=== PATIENT | female | born 1995 | race American Indian/Alaskan Native ===

== ENCOUNTER 2021-05-20 11:07 | Emergency (ER) | payer OTHER ==
[2021-05-20 11:42] VITALS: BP 117/67
--- NOTE | 2021-05-20 13:13 | Event Note ---
ED Screening Note ED Screening Note: Patient presents for nausea, vomiting, diarrhea that began 5 days ago She states that she is having difficulty tolerating p.o. intake Patient currently has a bag of chips She states that she has been having lower abdominal cramping She states that she went to the [facility] and had a positive blood test She has not yet had an ultrasound She states that she has an appointment next week She denies any vaginal bleeding /P: 1/A: 0 Last menstrual cycle 03/28/2021 This initial assessment/diagnostic orders/clinical plan/treatment(s) is/are subject to change based on patients health status, clinical progression and re- assessment by fellow clinical providers in the ED. Further treatment and workup at subsequent clinical providers discretion. Patient/guardian urged not to elope from the ED as their condition may be serious if not clinically assessed and managed. Initial orders include: labs, urine
[2021-05-20] MEDS ORDERED: LACTATED RINGERS 1,000 ML IV ONE (13:56)
[2021-05-20] MEDS ORDERED: ACETAMINOPHEN 325 MG TAB PO ONE (13:56)
[2021-05-20] MEDS ORDERED: ONDANSETRON 4 MG/2 ML INJ IV ONE (13:56)
--- NOTE | 2021-05-20 13:56 | Emergency Department Report ---
ED HPI - General Chief complaint: Abdominal Pain Stated complaint: ABD PAIN/CRAMPS Time Seen by Provider: 05/20/21 13:07 Source: patient Mode of arrival: Ambulatory Limitations: No Limitations - History of Present Illness Initial comments: 25-year-old female who reports that she is about 8 weeks based on her last menstrual cycle which was March 25, 2021 presents to the ER today with complaints of nausea, vomiting and abdominal cramps. Patient states that for the past 2 weeks she has been having constant nausea and vomiting to the point where she is unable to keep anything down. She reports pain and cramping to her lower abdomen which started about 1 week ago. She also reports pinkish discharge mainly when she wipes after urinating. She states that she has been having alternating watery and loose stools but no hematochezia, mucus or melena. She also denies any hematemesis. patient states that she has an appointment for her first care visit with the [facility] next week. She she is G2, P1 Ab0. Blood type is B+. MD Complaint: abdominal pain, other (Nausea vomiting) -: week(s) - Related Data Previous Rx's Medication Instructions Recorded Last Taken Type Ondansetron [Zofran Odt] 4 mg PO Q8HR PRN #20 tab.rapdis 05/20/21 Unknown Rx Allergies Allergy/AdvReac Type Severity Reaction Status Date / Time peanut AdvReac Unknown Verified 05/20/21 11:28 ED Review of Systems ROS: Stated complaint: ABD PAIN/CRAMPS Other details as noted in HPI Comment: All other systems reviewed and negative Constitutional: denies: chills, fever Eyes: denies: eye pain, eye discharge, vision change ENT: denies: ear pain, throat pain Respiratory: denies: cough, shortness of breath, SOB with exertion, SOB at rest, wheezing Cardiovascular: denies: chest pain, palpitations, dyspnea on exertion, edema, syncope, paroxysmal nocturnal dyspnea Gastrointestinal: abdominal pain, nausea, vomiting, diarrhea. denies: constipation, hematemesis, hematochezia Genitourinary: denies: urgency, dysuria, frequency, hematuria, discharge, abnormal menses, dyspareunia Musculoskeletal: denies: back pain, joint swelling, arthralgia Skin: denies: rash, lesions, change in color, change in hair/nails, pruritus Neurological: denies: headache, weakness, numbness, paresthesias, confusion, abnormal gait, vertigo Psychiatric: as per HPI. denies: auditory hallucinations, visual nayeli lucinations, homicidal thoughts, suicidal thoughts Hematological/Lymphatic: denies: easy bleeding, easy bruising, swollen glands ED Past Medical Hx - Past Medical History Previous Medical History?: No - Surgical History Past Surgical History?: No - Medications Home Medications: Home Medications Medication Instructions Recorded Confirmed Last Taken Type Ondansetron [Zofran Odt] 4 mg PO Q8HR PRN #20 tab.rapdis 05/20/21 Unknown Rx ED Physical Exam - General Limitations: No Limitations General appearance: alert, in no apparent distress - Head Head exam: Present: atraumatic, normocephalic, normal inspection - Eye Eye exam: Present: normal appearance, PERRL, EOMI Pupils: Present: normal accommodation - ENT ENT exam: Present: normal exam, mucous membranes moist - Neck Neck exam: Present: normal inspection, full ROM - Respiratory Respiratory exam: Present: normal lung sounds bilaterally. Absent: respiratory distress, wheezes, rales, rhonchi, stridor - Cardiovascular Cardiovascular Exam: Present: regular rate, normal rhythm, normal heart sounds - GI/Abdominal GI/Abdominal exam: Present: soft, tenderness (LLQ). Absent: distended, guarding, rebound - Neurological Exam Neurological exam: Present: alert, oriented X3, CN II-XII intact, normal gait - Psychiatric Psychiatric exam: Present: normal affect, normal mood - Skin Skin exam: Present: intact ED Course Vital Signs 05/20/21 11:29 Temperature 98.3 F Pulse Rate 57 L Respiratory 16 Rate Blood Pressure 117/67 O2 Sat by Pulse 100 Oximetry ED Medical Decision Making - Lab Data Result diagrams: 05/20/21 13:28 05/20/21 13:28 - Radiology Data Radiology results: report reviewed Patient: RADHA LOPEZ MR# : [id number] : 1995 Acct:[id number] Age/Sex: 25 / F ADM Date: 05/20/21 Loc: ED Attending Dr: Ordering Physician: RUSSELL GREGORIO Date of Service: 05/20/21 Procedure(s): US OB transvaginal Accession Number(s): [id number] cc: RUSSELL GREGORIO ULTRASOUND OBSTETRIC REASON FOR EXAM: Abd pain//Quant [id number] TECHNIQUE: Transvaginal ultrasound was performed to evaluate a first trimester . COMPARISON: None available. FINDINGS: FINDINGS: The pole, yolk sac, and gestational sac are normal in appearance. [place]-rump length: 15 mm. This corresponds with a gestational age of 7 weeks 5 days. heart rate: 145 bpm Perigestational hemorrhage: There is perigestational hemorrhage involving less than half the circumference of the gestational sac. This measures 1.3 x 2.0 x 0.6 cm. MATERNAL FINDINGS: The uterus demonstrates an otherwise unremarkable sonographic appearance. The right ovary demonstrates a normal sonographic appearance. The left ovary demonstrates a normal sonographic appearance. Cul-de-sac: There is no free fluid. IMPRESSION: Viable intrauterine . Gestational age is 7 weeks 5 days by ultrasound, consistent with the patient's LMP. Recommend clinical screening and ultrasound follow-up in the second trimester to screen for anomalies. Small to moderate perigestational hemorrhage does not involve greater than 50% of the sac circumference, though may account for vaginal bleeding. Continued attention on follow-up is recommended. Signer Name: Emilio Cotton MD Signed: 05/20/2021 5:17 PM Workstation Name: [id number] Transcribed By: JS Dictated By: EMILIO COTTON MD Electronically Authenticated By: EMILIO COTTON MD Signed Date/Time: 05/20/211716 DD/ 14 TD/TT: - Medical Decision Making Reports feeling better after IV fluids, Zofran and Tylenol. She actually states that she now feels hungry. She was able to tolerate p.o. fluids without any vomiting during stay. She is currently not toxic, not ill-appearing and not in any acute distress. Her vital signs are stable. All labs reviewed and unremarkable. Patient is Rh B+ and therefore no indication for RhoGam. Ultrasound showsViable intrauterine . Gestational age is 7 weeks 5 days by ultrasound, consistent with the patient's LMP. Recommend clinical screening and ultrasound follow-up in the second trimester to screen for anomalies. Small to moderate perigestational hemorrhage does not involve greater than 50% of the sac circumference, though may account for vaginal bleeding. Continued attention on follow-up is recommended. All labs including ultrasound results discussed with patient. Recommend that she keep her appointment with her [facility]. Recommend avoiding any sexual activity or strenuous activity until follow-up with OB. Patient will be given prescription for Zofran and informed her she can take Tylenol as needed for pain. At this time there is no indication for any additional testing, s pecialist consult or admission. Patient expressed understanding of all instructions and agree with plan. Patient was stable at time of discharge. Critical care attestation.: If time is entered above; I have spent that time in minutes in the direct care of this critically ill patient, excluding procedure time. ED Disposition Clinical Impression: Threatened miscarriage, Vomiting Disposition: HOME / SELF CARE / HOMELESS Is pt being admited?: No Does the pt Need Aspirin: No Condition: Stable Instructions: Threatened Miscarriage, Hyperemesis Gravidarum, Abdominal Pain (ED) Additional Instructions: I recommend that you take the Zofran as prescribed. I recommend that you do small frequent meals throughout the day instead of large meals. Recommend a sip on fluids through out the day. Tylenol for pain. Keep your appointment with your [facility] for next week. Return to the ER if your symptoms worsens or changes in any way. Prescriptions: Ondansetron [Zofran Odt] 4 mg PO Q8HR PRN #20 tab.rapdis PRN Reason: nausea/vomiting Referrals: PRIMARY CARE, [Primary Care Provider] - 3-5 Days Forms: Work/School Release Form(ED) Time of Disposition: 17:34
[2021-05-20 14:08] LABS: Basophils % (Auto) 0.3 % (0.0-1.8); Eosinophils # (Auto) 0.2 K/mm3 (0.0-0.4); Eosinophils % (Auto) 2.7 % (0.0-4.3); Hematocrit 36.5 % (30.3-42.9); Hemoglobin 12.4 gm/dl (10.1-14.3); Lymphocytes % (Auto) 26.6 % (13.4-35.0); Mean Corpuscular HGB Conc 34 % (30-34); Mean Corpuscular Volume 91 fl (79-97); Monocytes # (Auto) 0.6 K/mm3 (0.0-0.8); Monocytes % (Auto) 7.7 % (0.0-7.3); Platelet Count 195 K/mm3 (140-440); Red Blood Count 4.03 M/mm3 (3.65-5.03); Red Cell Distribution Width 13.8 % (13.2-15.2)
[2021-05-20 14:33] LABS: Alanine Aminotransferase 13 units/L (7-56); Albumin 4.5 g/dL (3.9-5); Blood Urea Nitrogen 6 mg/dL (7-17); Calcium 9.3 mg/dL (8.4-10.2); Hemolysis Index 3
[2021-05-20 14:38] LABS: BUN/Creatinine Ratio 15
[2021-05-20 15:27] LABS: Bilirubin,Urine NEG (Negative); Blood,Urine NEG (Negative); Color,Urine Straw (Yellow); Protein,Urine <15 mg/dL mg/dL (Negative); Urobilinogen,Urine < 2.0 mg/dL (<2.0)
[2021-05-20 15:34] LABS: HCG Qualitative,Urine Positive (Negative)
--- NOTE | 2021-05-20 17:22 | Ultrasound Report ---
ULTRASOUND OBSTETRIC REASON FOR EXAM: Abd pain//Quant [id number] TECHNIQUE: Transvaginal ultrasound was performed to evaluate a first trimester . COMPARISON: None available. FINDINGS: FINDINGS: The pole, yolk sac, and gestational sac are normal in appearance. [place]-rump length: 15 mm. This corresponds with a gestational age of 7 weeks 5 days. heart rate: 145 bpm Perigestational hemorrhage: There is perigestational hemorrhage involving less than half the circumfe rence of the gestational sac. This measures 1.3 x 2.0 x 0.6 cm. MATERNAL FINDINGS: The uterus demonstrates an otherwise unremarkable sonographic appearance. The right ovary demonstrates a normal sonographic appearance. The left ovary demonstrates a normal sonographic appearance. Cul-de-sac: There is no free fluid. IMPRESSION: Viable intrauterine . Gestational age is 7 weeks 5 days by ultrasound, consistent with the p atient's LMP. Recommend clinical screening and ultrasound follow-up in the second trimester to screen for anomalies. Small to moderate perigestational hemorrhage does not involve greater than 50% of the sac circumferen ce, though may account for vaginal bleeding. Continued attention on follow-up is recommended. Signer Name: Grey Cotton MD Signed: 05/20/2021 5:17 PM Workstation Name: [id number]
== END 2021-05-20 17:45 | disposition home or self-care (01) ==
LOC: ED 11:07
DX: O20.0 Threatened abortion (principal); O26.891 Other specified pregnancy related conditions, first trimester; O21.8 Other vomiting complicating pregnancy; Z3A.01 Less than 8 weeks gestation of pregnancy; Z91.010 Allergy to peanuts
CPT/HCPCS: 36415; 76817; 80053; 81001; 81025; 83690; 84702; 85025; 86900; 86901; 96361; 96374; 99284; J2405; J7120